=== PATIENT | male | born 1960 | race Caucasian/White ===

== ENCOUNTER 2016-10-21 15:08 | Emergency (ER) | payer OTHER ==
[~2016-10-21] VITALS: Ht 172.7 cm; Wt 72.6 kg
[2016-10-21] MEDS ORDERED: REQUIP1 M1 PO (15:35)
[2016-10-21] MEDS ORDERED: MULTI-DAY VITA1 EACH PO (15:36)
--- NOTE | 2016-10-21 15:46 | ED HAND/WRIST INJURY COMPLAINT ---
History of Present Illness General Chief Complaint: Laceration Procedure Stated Complaint: LT HAND LAC Source: patient, old records Exam Limitations: no limitations Vital Signs & Intake/Output Vital Signs & Intake/Output Vital Signs Date Time Temp Pulse Resp B/P Pulse O2 O2 Flow FiO2 Ox Delivery Rate 10/21 1726 96.0 66 18 138/78 99 Room Air 10/21 1518 98.3 90 18 142/85 100 Room Air Allergies Coded Allergies: No Known Allergies (10/21/16) Reconcile Medications Amoxicillin/Potassium Clav (Augmentin 875-125 Tablet) 875 MG-125 MG TABLET 1 TAB PO BID ppx Multivitamin (Multi-Day Vitamins) 1 EACH TABLET 1 TAB PO DAILY SUPPLEMENT ( Reported) Ropinirole HCl (Requip) 1 MG TABLET 1.5 TAB PO QPM RLS (Reported) Tylenol With Codeine (Tylenol With Codeine #3 Tablet) 300 MG-30 MG TABLET 1 TAB PO BIDP PRN breakthrough pain Triage Note: PT TO ED AFTER CUTTING THUMB, POINTER AND INDEX FINGER WITH TABLE SAW, LAST TETANUS APPROX 2 WEEKS AGO. PT AGITATED IN TRIAGE, DIFFICULTY ANSWERING QUESTIONS DUE TO PAIN, REFUSING PAIN MEDICATION IN TRIAGE. Triage Nurses Notes Reviewed? yes Occurred: just prior to arrival Duration: minute(s): (30), constant Timing: recent history Injury Environment: home Severity: moderate, severe Severity Numbers: 10 Pain/Injury Location: Left: 1st finger, 2nd finger, 3rd finger. Context: laceration Method of Injury: laceration No Modifying Factors: none Associated Symptoms: none HPI: 56-year-old male presents emergency room for evaluation status post sustaining laceration to his left first second and third fingers just prior to arrival on a table saw's of wood that he was cutting kicked back causing his hands to go into the saw. He is right-hand dominant. The patient states he is up-to-date on his tetanus. He denies any other injury is right-hand dominant. He is not taken anything for pain. He denies any difficulty with range of motion of the fingers numbness or tingling house complaining of severe aching throbbing 10 out of 10 pain to the fingers nonradiating no hand or wrist pain. There is no other injury (AROLDO COREY,KEO) Past History Travel History Traveled to [place] past 21 day No Medical History Any Pertinent Medical History? none Surgical History Surgical History: none Psychosocial History Tobacco Use: Never used Family History Hx Contributory? No (KEO SOLORIO) Review of Systems Review of Systems Constitutional: Reports: see HPI. All Other Systems: Reviewed and Negative Comments Review of systems: See HPI, All other systems negative. Constitutional, no chills no fever, no malaise HEENT: No visual changes no sore throat no congestion Cardiovascular: No chest pain , no palpitation Skin,no rashes, no change in skin Respiratory: No dyspnea no cough no sputum GI: No nausea no vomiting, no diarrhea, : No dysuria Muscle skeletal: joint pain, no joint swelling, no back pain, no neck pain, Neurologic: No numbness no headache Psych: No stress Heme/endocrine: No bruising no bleeding Immunology: No lymphadenopathy (KEO SOLORIO) Physical Exam Physical Exam General Appearance: well developed/nourished, alert, awake, moderate distress Hand Left: normal range of motion, lacerations, 1st finger, 2nd finger, 3rd finger Hand Right: normal inspection, normal range of motion Comments: Well-developed well-nourished patient in no apparent distress. HEENT: Atraumatic, extraocular motion intact Neck: Supple, FROM Back: FROM Cardiovascular: Regular rate and rhythms no murmurs rubs or gallops, Respiratory: No respiratory distress. Patient speaking in full complete sentences. Breath sounds clear to auscultation bilaterally: NO W/R/R Shoulder: Atraumatic/Stable. FROM . Elbow: Atraumatic/stable. FROM. No laxity Upper arm/Forearm: Atraumatic. Nontender. No edema, 5 out of 5 paper tube grader strength noted to bilateral upper extremities Hand/Wrist: There is a 2 cm laceration noted to the distal aspect of the left first finger, there is a 2-1/2 cm superficial linear laceration involving the nailbed to the left second finger and there is a 1.57 m laceration noted to the left third finger involving the distal aspect of the nail, capillary refill is within normal limits. Sensation the patient has full range motion of the fingers there is no visualized or palpated foreign body, the rest the hand is atraumatic FROM Pulses: Normal/equal radial pulses bilaterally. Brisk cap refill Lower Extremities: full range of motion Neuro: Alert and oriented x3 Skin: Warm & dry;No appreciable rash on exposed skin Psych: Mood affect normal, normal memory normal judgment. (KEO SOLORIO) Progress Differential Diagnosis: contusion, compartment syndrome, dislocation, fracture, sprain, AMPUTATION, EMBEDDED FB Plan of Care: Current Medications Sig/Esther Start time Last Medication Dose Stop Time Status Admin Hydromorphone HCl 1 MG ONCE ONE 10/21 1529 CAN (Dilaudid) 10/21 153 Digital block was performed to left first second and third finger by myself immediately being brought back secondary to pain, x-rays were ordered Unasyn 3 g Toradol 30 mG IV ordered discussed with patient plan of care going forward he feels comfortable plan patient with noted improvement in pain after digital block feels comfortable with plan I discussed with the patient at all of his x-ray findings. The case was discussed with Dr. Mcfadden agrees with plan. Discussed the need for close follow-up with hand specialist the wounds were closed by myself patient tolerated procedure well he was neurovascularly intact prior to and after application of sutures and splint to the left third finger. Sterile dressings Betadine SURGICEL APPLIED. Discussed with him the possibly of a foreign body not seen on examination still exists to return immediately with any concerns or signs infection A she tolerated procedures well he'll follow-up with hand or return in 48 hours for wound check (KEO SOLORIO) Diagnostic Imaging: Viewed by Me: Radiology Read. Discussed w/RAD: Radiology Read. Radiology Impression: PATIENT: MARLEN EDMONDSON PRESENT AGE: 56 PATIENT ACCOUNT NO: [id number] : 62 LOCATION: [facility] ORDERING PHYSICIAN: KEO COREY SERVICE DATE: 10/21/16 EXAM TYPE: RAD - XRY-FINGERS, LEFT EXAMINATION: XR FINGER, LEFT CLINICAL INFORMATION: Laceration to the first through third fingers. COMPARISON: None TECHNIQUE: 3 views of the left hand and one view of the thumb were obtained. FINDINGS: Soft tissue injury to the distal first through third digits with associated bandaging demonstrated. There is displaced, comminuted tuft fracturing of the third distal phalanx. Mild fracturing with displacement of the palmar distal first phalangeal tuft is also demonstrated. The second distal phalangeal tuft is not fractured. No metallic foreign body is demonstrated. IMPRESSION: First and third distal phalangeal tuft fracturing. No metallic foreign body demonstrated. DICTATED BY: NANCY GALE MD DATE/TIME DICTATED:10/21/161656 DIRECTOR CLINICAL RESEARCH:OLIVER DATE/TIME TRANSCRIBED:10/21/161656 CONFIDENTIAL, DO NOT COPY WITHOUT APPROPRIATE AUTHORIZATION. <Electronically signed in Other Vendor System> SIGNED BY: NANCY GALE MD 10/21/16 1703 (KEO SOLORIO) Departure Departure Time of Disposition: 172 Disposition: HOME OR SELF CARE Condition: Stable Clinical Impression Primary Impression: Finger laceration Secondary Impressions: Closed fracture of tuft of distal phalanx of finger Referrals: ASHOK PRITCHARD,BRENDA Singletary Additional Instructions: Follow-up with hand specialist Dr. Lee tomorrow for follow-up evaluation later this week for wound check. augmentin for wound prophylaxis, spint at all times to finger.Tylenol with codeine for breakthrough pain these were sent to your pharmacy Keep area clean and covered as discussed, bacitracin daily. If you're unable to be seen by 1 dozen the next 48-72 hours return to the emergency room for wound check. Return to ER in 7-10 days for suture removal. The possibility of a retained foreign body not seen during examination today or deep tendon injury exists. Return to ER anytime sooner with any concerns or signs of infection: Redness, warmth, swelling discharge fever or chills. Departure Forms: Customer Survey General Discharge Information Prescriptions: Current Visit Scripts Amoxicillin/Potassium Clav (Augmentin 875-125 Tablet) 1 TAB PO BID #20 TAB Tylenol With Codeine (Tylenol With Codeine #3 Tablet) 1 TAB PO BIDP PRN breakthrough pain #12 TAB (KEO SOLORIO) PA/COMPRESSION MOLDING MACHINE OPERATOR Co-Sign Statement Statement: ED Attending supervision documentation- [] I saw and evaluated the patient. I have also reviewed all the pertinent lab results and diagnostic results. I agree with the findings and the plan of care as documented in the PA's/COMPRESSION MOLDING MACHINE OPERATOR's documentation. [X] I have reviewed the ED Record and agree with the PA's/COMPRESSION MOLDING MACHINE OPERATOR's documentation. [] Additions or exceptions (if any) to the PAs/COMPRESSION MOLDING MACHINE OPERATOR's note and plan are summarized below: [] (SHILPA PRITCHARD,VISHAL Dudley) Procedures Laceration/Wound Repair Laceration/Wound Repair: 1 Wound Location: upper extremity (LUE) Wound's Depth, Shape: linear, superficial Wound Length (cm): 2.5 Wound Explored: clean, no foreign body removed, irrigated extensively Irrigated w/ Saline (ccs): 300 Betadine Prep? Yes Anesthesia: digit block Volume Anesthetic (ccs): 5 Wound Repaired With: sutures Suture Size/Type: 3:0 Number of Sutures: 4 Sterile Dressing Applied: Yes Splint Applied? Yes Laceration/Wound Repair: 2 Wound Location: upper extremity (LUE 2ND FINGER) Wound's Depth, Shape: linear, nail avulsed, superficial Wound Length (cm): 2 Wound Explored: clean, no foreign body removed, irrigated extensively Irrigated w/ Saline (ccs): 300 Betadine Prep? Yes Anesthesia: digit block Volume Anesthetic (ccs): 5 Wound Debrided: minimal Wound Repaired With: sutures Suture Size/Type: 3:0 Number of Sutures: 4 Layer Closure? No Sterile Dressing Applied: Yes Splint Applied? Yes Tetanus Status: up to date Laceration/Wound Repair: 3 Wound Location: L 3RD FINGER Wound's Depth, Shape: contused tissue, linear, nail avulsed Wound Length (cm): 2 Wound Explored: clean, irrigated extensively Irrigated w/ Saline (ccs): 300 Betadine Prep? Yes Anesthesia: digit block Volume Anesthetic (ccs): 5 Wound Repaired With: sutures Suture Size/Type: 4:0 Number of Sutures: 6 Layer Closure? No Sterile Dressing Applied: Yes Splint Applied? Yes Tetanus Status: up to date (KEO SOLORIO)
--- NOTE | 2016-10-21 17:03 | RADIOLOGY REPORT ---
EXAMINATION: XR FINGER, LEFT CLINICAL INFORMATION: Laceration to the first through third fingers. COMPARISON: None TECHNIQUE: 3 views of the left hand and one view of the thumb were obtained. FINDINGS: Soft tissue injury to the distal first through third digits with associated bandaging demonstrated. There is displaced, comminuted tuft fracturing of the third distal phalanx. Mild fracturing with displacement of the palmar distal first phalangeal tuft is also demonstrated. The second distal phalangeal tuft is not fractured. No metallic foreign body is demonstrated. IMPRESSION: First and third distal phalangeal tuft fracturing. No metallic foreign body demonstrated.
[2016-10-21] MEDS ORDERED: TYLENOL WITH C1 EACH PO (17:25)
[2016-10-21] MEDS ORDERED: AUGMENTIN 875-1 EACH PO (17:25)
[2016-10-21 17:26] VITALS: BP 138/78
== END 2016-10-21 17:52 ==
LOC: ERH 15:08
DX: S62.633A Displaced fracture of distal phalanx of left middle finger, initial encounter for closed fracture (principal); S62.522A Displaced fracture of distal phalanx of left thumb, initial encounter for closed fracture; S61.012A Laceration without foreign body of left thumb without damage to nail, initial encounter; S61.311A Laceration without foreign body of left index finger with damage to nail, initial encounter; S61.313A Laceration without foreign body of left middle finger with damage to nail, initial encounter; W31.2XXA Contact with powered woodworking and forming machines, initial encounter; Y93.9 Activity, unspecified
CPT/HCPCS: 73140-LT; 96374; 96375; J1885